=== PATIENT | male | born 1945 | race Caucasian/White ===

== ENCOUNTER 2017-02-20 08:15 | Inpatient (IN) | payer OTHER ==
[~2017-02-20] VITALS: Ht 177.8 cm; Wt 74.9 kg
[2017-02-20] MEDS ORDERED: HYDROmorphone 1 MG/ML, 1ML ONE (08:44)
[2017-02-20] MEDS ORDERED: ASPIRIN 325 MG TABLET ONE (08:44)
[2017-02-20] MEDS ORDERED: SODIUM CHLORIDE 0.9% 1,000ML IVBOLUS ONE ×2 (09:00→13:00)
[2017-02-20] MEDS ORDERED: ONDANSETRON 2MG/ML, 2ML IVPush ONE (09:00)
[2017-02-20] MEDS ORDERED: SODIUM CHLORIDE FLUSH 10ML SYR IVF ONE (09:00)
[2017-02-20] MEDS ORDERED: ASPIRIN 81 MG TABLET CHEW PO ONE (09:00)
[2017-02-20] MEDS: HYDROmorphone 1 MG/ML, 1ML IVPush PRN ×3 (09:04→15:14)
[2017-02-20 09:24] LABS: WHITE BLOOD COUNT 20.9 x10^3/uL (3.4-10)
[2017-02-20 09:36] LABS: BLOOD UREA NITROGEN 31 mg/dL (7-18)
[2017-02-20 09:44] LABS: IS PT STATUS REG ER OR PRE ER? YES
[2017-02-20] MEDS ORDERED: DILTIAZEM 5 MG/ML, 5ML ONE ×2 (09:50→11:36)
[2017-02-20] MEDS ORDERED: MORPHINE SULFATE 4 MG/ML, 1ML ONE (10:03)
[2017-02-20] MEDS ORDERED: ONDANSETRON 2MG/ML, 2ML ONE (10:03)
[2017-02-20] MEDS ORDERED: ROFL500T INH (10:10)
[2017-02-20] MEDS ORDERED: ATEN50TA41 PO (10:10)
[2017-02-20] MEDS ORDERED: CEFTRIAXONE PMX 1GM/50ML 50 ML ONE (10:22)
[2017-02-20] MEDS ORDERED: HEPARIN 5,000 UNITS/ML, 1ML ONE (10:28)
[2017-02-20] MEDS ORDERED: HEPARIN 25,000 UNITS/500ML PMX 500 ML ONE (10:28)
[2017-02-20] MEDS ORDERED: CEFTRIAXONE PMX 1GM/50ML 50 ML IVPB ONE (10:30)
[2017-02-20] MEDS ORDERED: AZITHROMYCIN 500 MG in SODIUM CHLORIDE 0.9% 250 ML IVPB ONE (10:30)
[2017-02-20] MEDS: HEPARIN 25,000 UNITS/500ML PMX 500 ML IV PRN ×2 (10:45→15:11)
[2017-02-20 10:57] LABS: DIFF TOTAL CELLS COUNTED 100 CELL DIFF
[2017-02-20] MEDS ORDERED: HEPARIN 5,000 UNITS/ML, 1ML IV PRN (11:00)
[2017-02-20] MEDS ORDERED: HEPARIN 5,000 UNITS/ML, 1ML IV ONE (11:00)
[2017-02-20 11:02] LABS: VERIFY COUNTS? YES
[2017-02-20] MEDS ORDERED: SUCCINYLCHOLINE 20 MG/ML, 10ML IVPush ONE (11:30)
[2017-02-20] MEDS ORDERED: ETOMIDATE 20 MG/10 ML IVPush ONE (11:30)
[2017-02-20] MEDS ORDERED: ALBUTEROL SULFATE 2.5 MG/3 ML NPPB ONE (11:35)
[2017-02-20] MEDS ORDERED: ALBUTEROL SULFATE 2.5 MG/3 ML ONE (11:38)
[2017-02-20] MEDS ORDERED: ALBUTEROL/IPRATROPIUM 2.5MG/0.5MG, 3 ML ONE (11:38)
[2017-02-20 11:45] LABS: ABG COLLECTION SITE LEFT RADIAL; COLLATERAL CIRCULATION TESTING NORMAL
[2017-02-20] MEDS ORDERED: ALBUTEROL/IPRATROPIUM 2.5MG/0.5MG, 3 ML NEB ONE (12:00)
[2017-02-20] MEDS: SODIUM CHLORIDE 0.9% 1,000 ML IV SCH (12:57)
[2017-02-20] MEDS ORDERED: POLYETHYLENE GLYCOL 17 GM PACKET PO PRN (13:00)
[2017-02-20] MEDS: CEFTRIAXONE PMX 2GM/50ML 50 ML IV SCH (13:00)
[2017-02-20] MEDS: AZITHROMYCIN 500 MG in SODIUM CHLORIDE 0.9% 250 ML IV SCH (13:00)
[2017-02-20] MEDS ORDERED: TEMAZEPAM 15 MG CAPSULE PO PRN (13:00)
[2017-02-20] MEDS ORDERED: GUAIFENESIN/DM 200-20MG, 10ML UDC PO PRN (13:00)
[2017-02-20] MEDS ORDERED: ACETAMINOPHEN 325 MG TABLET PO PRN (13:00)
[2017-02-20] MEDS ORDERED: ENOXAPARIN 40 MG/0.4 ML SQ SCH (13:00)
[2017-02-20] MEDS: OXYcodone IR 5MG TABLET PO PRN ×2 (14:59→19:52)
[2017-02-20] MEDS: methylPREDNISolone SOD SUCC 125 MG/2 ML IVPush SCH ×2 (15:17→19:52)
[2017-02-20] MEDS: DILTIAZEM 125 MG in SODIUM CHLORIDE 0.9% 100 ML IV SCH (15:18)
[2017-02-20] MEDS ORDERED: OMNIPAQUE 350 MG/ML, 100ML BOTTLE ONE (17:24)
[2017-02-20] MEDS: ALBUTEROL/IPRATROPIUM 2.5MG/0.5MG, 3 ML NPPB SCH ×2 (18:30→22:05)
[2017-02-21] MEDS: methylPREDNISolone SOD SUCC 125 MG/2 ML IVPush SCH ×4 (01:26→20:46)
[2017-02-21] MEDS: ENOXAPARIN 80 MG/0.8 ML SQ SCH ×2 (01:27→14:18)
[2017-02-21] MEDS: SODIUM CHLORIDE 0.9% 1,000 ML IV SCH ×3 (01:28→18:02)
[2017-02-21] MEDS: OXYcodone IR 5MG TABLET PO PRN ×3 (01:29→14:12)
[2017-02-21] MEDS: ALBUTEROL/IPRATROPIUM 2.5MG/0.5MG, 3 ML NPPB SCH ×6 (01:53→21:27)
[2017-02-21] MEDS: DILTIAZEM 125 MG in SODIUM CHLORIDE 0.9% 100 ML IV SCH ×2 (02:14→15:06)
[2017-02-21] MEDS ORDERED: OMEPRAZOLE 20 MG CAPSULE.DR PO PRN (02:30)
[2017-02-21] MEDS: ONDANSETRON 2MG/ML, 2ML IVPush PRN ×2 (03:17→14:06)
[2017-02-21 03:49] LABS: BLOOD UREA NITROGEN 34 mg/dL (7-18)
[2017-02-21 03:52] LABS: ASPARTATE AMINO TRANSFERASE 10 U/L (15-37)
[2017-02-21] MEDS ORDERED: MORPHINE SULFATE 4 MG/ML, 1ML IVPush ONE (04:00)
[2017-02-21 04:22] LABS: DIFF TOTAL CELLS COUNTED 100 CELL DIFF; HEMATOCRIT 48.3 % (39.2-51.8); HEMOGLOBIN 15.9 g/dL (13.7-18.0); WHITE BLOOD COUNT 13.1 x10^3/uL (3.4-10)
[2017-02-21 04:25] LABS: VERIFY COUNTS? YES
[2017-02-21 04:39] LABS: ABG COLLECTION SITE RIGHT RADIAL; COLLATERAL CIRCULATION TESTING NORMAL
[2017-02-21] MEDS ORDERED: POTASSIUM CHLORIDE 20 MEQ TAB.ER.PRT PO ONE (07:00)
[2017-02-21] MEDS ORDERED: SENNA/DOCUSATE TABLET PO SCH (09:00)
[2017-02-21] MEDS: ALUMINUM/MAG/SIMETHICONE 30 ML UDC PO PRN ×2 (09:21→12:38)
[2017-02-21] MEDS: AZITHROMYCIN 500 MG in SODIUM CHLORIDE 0.9% 250 ML IV SCH (12:45)
[2017-02-21] MEDS: CEFTRIAXONE PMX 2GM/50ML 50 ML IV SCH (12:45)
[2017-02-21] MEDS: FENTANYL PF 100 MCG/2ML IVPush PRN ×3 (15:02→21:20)
[2017-02-21] MEDS ORDERED: PANTOPRAZOLE 80 MG in SODIUM CHLORIDE 0.9% 50 ML IV ONE (17:30)
[2017-02-21] MEDS: PANTOPRAZOLE 80 MG in SODIUM CHLORIDE 0.9% 100 ML IV SCH (18:01)
[2017-02-21] MEDS ORDERED: ACETAMINOPHEN 325 MG TABLET PO PRN (20:00)
[2017-02-22] MEDS: ENOXAPARIN 80 MG/0.8 ML SQ SCH ×2 (00:03→13:22)
[2017-02-22] MEDS: OXYcodone IR 5MG TABLET PO PRN ×2 (00:04→07:50)
[2017-02-22] MEDS: ALBUTEROL/IPRATROPIUM 2.5MG/0.5MG, 3 ML NPPB SCH ×6 (01:59→23:00)
[2017-02-22] MEDS: methylPREDNISolone SOD SUCC 125 MG/2 ML IVPush SCH ×4 (02:15→20:39)
[2017-02-22] MEDS: PANTOPRAZOLE 80 MG in SODIUM CHLORIDE 0.9% 100 ML IV SCH ×2 (02:47→13:22)
[2017-02-22 03:35] LABS: HEMATOCRIT 41.2 % (39.2-51.8); HEMOGLOBIN 13.5 g/dL (13.7-18.0); WHITE BLOOD COUNT 8.9 x10^3/uL (3.4-10)
[2017-02-22 03:38] LABS: BLOOD UREA NITROGEN 41 mg/dL (7-18)
[2017-02-22 04:23] LABS: DIFF TOTAL CELLS COUNTED 100 CELL DIFF
[2017-02-22 04:25] LABS: VERIFY COUNTS? YES
[2017-02-22 05:31] LABS: ABG COLLECTION SITE RIGHT RADIAL; COLLATERAL CIRCULATION TESTING NORMAL
[2017-02-22 05:50] LABS: FIO2 55 %
[2017-02-22] MEDS: SODIUM CHLORIDE 0.9% 1,000 ML IV SCH ×2 (06:08→17:47)
[2017-02-22] MEDS: DILTIAZEM 125 MG in SODIUM CHLORIDE 0.9% 100 ML IV SCH (06:47)
[2017-02-22] MEDS: SENNA/DOCUSATE TABLET PO SCH (07:50)
[2017-02-22] MEDS ORDERED: OMEPRAZOLE 20 MG CAPSULE.DR PO SCH (09:00)
[2017-02-22] MEDS: FENTANYL PF 100 MCG/2ML IVPush PRN ×5 (09:59→23:26)
[2017-02-22 10:38] VITALS: BP 118/61
[2017-02-22] MEDS: AZITHROMYCIN 500 MG in SODIUM CHLORIDE 0.9% 250 ML IV SCH (12:54)
[2017-02-22 13:27] VITALS: BP 145/71
[2017-02-22] MEDS: CEFTRIAXONE PMX 2GM/50ML 50 ML IV SCH (14:43)
[2017-02-22 19:10] VITALS: BP 144/66
[2017-02-23] MEDS: OXYcodone IR 5MG TABLET PO PRN ×5 (00:24→20:14)
[2017-02-23] MEDS: PANTOPRAZOLE 80 MG in SODIUM CHLORIDE 0.9% 100 ML IV SCH ×3 (01:08→20:14)
[2017-02-23] MEDS: ENOXAPARIN 80 MG/0.8 ML SQ SCH ×3 (01:08→23:22)
[2017-02-23] MEDS: methylPREDNISolone SOD SUCC 125 MG/2 ML IVPush SCH ×2 (02:19→09:29)
[2017-02-23] MEDS: SODIUM CHLORIDE 0.9% 1,000 ML IV SCH ×3 (02:19→23:22)
[2017-02-23 03:00] VITALS: BP 145/69
[2017-02-23] MEDS: ALBUTEROL/IPRATROPIUM 2.5MG/0.5MG, 3 ML NPPB SCH ×5 (03:00→23:00)
[2017-02-23] MEDS: FENTANYL PF 100 MCG/2ML IVPush PRN ×3 (04:57→20:14)
[2017-02-23 08:48] VITALS: BP_SYST 159; BP_SYST 167; BP_DIAS 73; BP_DIAS 75
[2017-02-23] MEDS: SENNA/DOCUSATE TABLET PO SCH (09:29)
[2017-02-23] MEDS: CEFTRIAXONE PMX 2GM/50ML 50 ML IV SCH (12:59)
[2017-02-23] MEDS: AZITHROMYCIN 500 MG in SODIUM CHLORIDE 0.9% 250 ML IV SCH (13:36)
[2017-02-23 15:25] VITALS: BP 155/79
[2017-02-23 18:50] VITALS: BP 188/93
[2017-02-23] MEDS: TEMAZEPAM 15 MG CAPSULE PO PRN (23:23)
[2017-02-24] VITALS (9 sets, daily range): BP systolic 143–183; BP diastolic 75–92
[2017-02-24] MEDS: ALBUTEROL/IPRATROPIUM 2.5MG/0.5MG, 3 ML NPPB SCH ×6 (03:10→23:00)
[2017-02-24] MEDS: PANTOPRAZOLE 80 MG in SODIUM CHLORIDE 0.9% 100 ML IV SCH (04:15)
[2017-02-24] MEDS: OXYcodone IR 5MG TABLET PO PRN ×3 (04:30→16:12)
[2017-02-24] MEDS: SENNA/DOCUSATE TABLET PO SCH (08:06)
[2017-02-24] MEDS: SODIUM CHLORIDE 0.9% 1,000 ML IV SCH (10:38)
[2017-02-24] MEDS: ATENOLOL 50 MG TABLET PO SCH (12:25)
[2017-02-24] MEDS: CEFTRIAXONE PMX 2GM/50ML 50 ML IV SCH (12:25)
[2017-02-24] MEDS: ENOXAPARIN 80 MG/0.8 ML SQ SCH (13:27)
[2017-02-24] MEDS: AZITHROMYCIN 500 MG in SODIUM CHLORIDE 0.9% 250 ML IV SCH (13:27)
[2017-02-24] MEDS: NYSTATIN 500,000 UNITS/5 ML UDC PO SCH ×3 (13:27→21:06)
[2017-02-24] MEDS: ENALAPRILAT 1.25 MG/ML, 2ML IV PRN (17:27)
[2017-02-24] MEDS: PANTOPRAZOLE 40 MG IV IVPush SCH (21:05)
[2017-02-24] MEDS: FENTANYL PF 100 MCG/2ML IVPush PRN (21:06)
[2017-02-24] MEDS: TEMAZEPAM 15 MG CAPSULE PO PRN (22:53)
[2017-02-25] MEDS: OXYcodone IR 5MG TABLET PO PRN ×6 (00:52→21:30)
[2017-02-25] MEDS: FENTANYL PF 100 MCG/2ML IVPush PRN ×3 (01:05→21:30)
[2017-02-25 01:19] VITALS: BP 189/96
[2017-02-25] MEDS: ENALAPRILAT 1.25 MG/ML, 2ML IV PRN (01:43)
[2017-02-25] MEDS: ALBUTEROL/IPRATROPIUM 2.5MG/0.5MG, 3 ML NPPB SCH ×5 (03:00→19:27)
[2017-02-25] MEDS: ATENOLOL 50 MG TABLET PO SCH (04:49)
[2017-02-25] MEDS: NYSTATIN 500,000 UNITS/5 ML UDC PO SCH ×4 (04:50→21:29)
[2017-02-25 05:04] LABS: ASPARTATE AMINO TRANSFERASE 22 U/L (15-37); BLOOD UREA NITROGEN 30 mg/dL (7-18)
[2017-02-25 05:19] LABS: HEMATOCRIT 44.4 % (39.2-51.8); HEMOGLOBIN 14.7 g/dL (13.7-18.0); WHITE BLOOD COUNT 9.7 x10^3/uL (3.4-10)
[2017-02-25 05:58] LABS: DIFF TOTAL CELLS COUNTED 100 CELL DIFF
[2017-02-25 06:00] LABS: VERIFY COUNTS? YES
[2017-02-25] MEDS: SENNA/DOCUSATE TABLET PO SCH (08:52)
[2017-02-25] MEDS: PANTOPRAZOLE 40 MG IV IVPush SCH (08:53)
[2017-02-25] MEDS: ENOXAPARIN 40 MG/0.4 ML SQ SCH (08:53)
[2017-02-25 08:59] VITALS: BP_SYST 166; BP_SYST 180; BP_DIAS 84; BP_DIAS 87
[2017-02-25] MEDS ORDERED: ALBUTEROL/IPRATROPIUM 2.5MG/0.5MG, 3 ML NPPB PRN (11:00)
[2017-02-25] MEDS: CEFTRIAXONE PMX 2GM/50ML 50 ML IV SCH (13:39)
[2017-02-25] MEDS: AZITHROMYCIN 500 MG in SODIUM CHLORIDE 0.9% 250 ML IV SCH (14:27)
[2017-02-25 14:36] VITALS: BP 159/87
[2017-02-25 17:43] VITALS: BP_SYST 159; BP_SYST 167; BP_DIAS 72; BP_DIAS 85
[2017-02-25 20:00] VITALS: BP 154/77
[2017-02-25] MEDS: PANTOPROZOLE 40MG TABLET PO SCH (21:29)
[2017-02-26 01:16] VITALS: BP 155/79
[2017-02-26] MEDS: FENTANYL PF 100 MCG/2ML IVPush PRN ×2 (01:30→22:52)
[2017-02-26 04:50] LABS: HEMOGLOBIN 13.5 g/dL (13.7-18.0); WHITE BLOOD COUNT 8.8 x10^3/uL (3.4-10)
[2017-02-26 05:00] LABS: BLOOD UREA NITROGEN 19 mg/dL (7-18)
[2017-02-26 05:05] LABS: ASPARTATE AMINO TRANSFERASE 12 U/L (15-37)
[2017-02-26] MEDS: NYSTATIN 500,000 UNITS/5 ML UDC PO SCH ×4 (05:32→20:35)
[2017-02-26] MEDS: ASPIRIN 81 MG TABLET EC PO SCH (05:33)
[2017-02-26] MEDS: ATENOLOL 50 MG TABLET PO SCH (05:33)
[2017-02-26 05:52] LABS: DIFF TOTAL CELLS COUNTED 100 CELL DIFF
[2017-02-26 05:57] LABS: VERIFY COUNTS? YES
[2017-02-26 05:58] LABS: POLYCHROMASIA 1+
[2017-02-26] MEDS: ALBUTEROL/IPRATROPIUM 2.5MG/0.5MG, 3 ML NPPB SCH ×4 (07:05→19:36)
[2017-02-26 07:21] VITALS: BP 179/81
[2017-02-26] MEDS: PANTOPROZOLE 40MG TABLET PO SCH ×2 (09:16→20:35)
[2017-02-26] MEDS: SENNA/DOCUSATE TABLET PO SCH (09:16)
[2017-02-26] MEDS: OXYcodone IR 5MG TABLET PO PRN ×3 (09:16→20:35)
[2017-02-26] MEDS: ENOXAPARIN 40 MG/0.4 ML SQ SCH (09:16)
[2017-02-26 10:33] VITALS: BP 155/84
[2017-02-26] MEDS: POLYETHYLENE GLYCOL 17 GM PACKET PO PRN (12:00)
[2017-02-26] MEDS: CEFTRIAXONE PMX 2GM/50ML 50 ML IV SCH (13:36)
[2017-02-26] MEDS: AZITHROMYCIN 500 MG in SODIUM CHLORIDE 0.9% 250 ML IV SCH (14:28)
[2017-02-26 14:43] VITALS: BP 155/88
[2017-02-26 20:15] VITALS: BP 145/85
[2017-02-27] MEDS: TEMAZEPAM 15 MG CAPSULE PO PRN (00:28)
[2017-02-27 01:56] VITALS: BP 127/83
[2017-02-27] MEDS: NYSTATIN 500,000 UNITS/5 ML UDC PO SCH ×4 (05:52→20:31)
[2017-02-27] MEDS: OXYcodone IR 5MG TABLET PO PRN ×4 (05:52→18:59)
[2017-02-27] MEDS: ASPIRIN 81 MG TABLET EC PO SCH (05:52)
[2017-02-27] MEDS: ATENOLOL 50 MG TABLET PO SCH (05:52)
[2017-02-27 05:58] VITALS: BP 137/64
[2017-02-27] MEDS: ALBUTEROL/IPRATROPIUM 2.5MG/0.5MG, 3 ML NPPB SCH ×4 (07:07→20:00)
[2017-02-27 07:51] VITALS: BP 165/83
[2017-02-27] MEDS: PANTOPROZOLE 40MG TABLET PO SCH ×2 (09:01→20:31)
[2017-02-27] MEDS: ENOXAPARIN 40 MG/0.4 ML SQ SCH (09:01)
[2017-02-27] MEDS: SENNA/DOCUSATE TABLET PO SCH (09:01)
[2017-02-27] MEDS: CEFTRIAXONE PMX 2GM/50ML 50 ML IV SCH (12:40)
[2017-02-27] MEDS: FENTANYL PF 100 MCG/2ML IVPush PRN ×2 (13:03→20:31)
[2017-02-27] MEDS: AZITHROMYCIN 500 MG in SODIUM CHLORIDE 0.9% 250 ML IV SCH (13:46)
[2017-02-27 14:08] VITALS: BP 149/70
[2017-02-27] MEDS ORDERED: SODIUM CHLORIDE NASAL SPRAY 45ML BOTTLE NAS PRN (17:30)
[2017-02-27 18:40] VITALS: BP 155/63
[2017-02-28] MEDS: OXYcodone IR 5MG TABLET PO PRN ×4 (00:22→20:01)
[2017-02-28] MEDS: TEMAZEPAM 15 MG CAPSULE PO PRN (00:28)
[2017-02-28 00:47] VITALS: BP 159/82
[2017-02-28] MEDS: FENTANYL PF 100 MCG/2ML IVPush PRN ×2 (01:50→11:42)
[2017-02-28 04:48] LABS: HEMATOCRIT 37.6 % (39.2-51.8); HEMOGLOBIN 12.5 g/dL (13.7-18.0); WHITE BLOOD COUNT 12.1 x10^3/uL (3.4-10)
[2017-02-28 04:58] LABS: BLOOD UREA NITROGEN 22 mg/dL (7-18)
[2017-02-28] MEDS: ASPIRIN 81 MG TABLET EC PO SCH (05:18)
[2017-02-28] MEDS: POLYETHYLENE GLYCOL 17 GM PACKET PO PRN (05:24)
[2017-02-28] MEDS: NYSTATIN 500,000 UNITS/5 ML UDC PO SCH ×4 (05:24→19:27)
[2017-02-28] MEDS: ATENOLOL 50 MG TABLET PO SCH (05:24)
[2017-02-28 06:30] VITALS: BP 154/85
[2017-02-28] MEDS: SENNA/DOCUSATE TABLET PO SCH (08:35)
[2017-02-28] MEDS: ENOXAPARIN 40 MG/0.4 ML SQ SCH (08:35)
[2017-02-28] MEDS: PANTOPROZOLE 40MG TABLET PO SCH ×2 (08:35→19:23)
[2017-02-28] MEDS: ALBUTEROL/IPRATROPIUM 2.5MG/0.5MG, 3 ML NPPB SCH ×4 (09:15→21:50)
[2017-02-28] MEDS: CEFTRIAXONE PMX 2GM/50ML 50 ML IV SCH (12:24)
[2017-02-28] MEDS: AZITHROMYCIN 500 MG in SODIUM CHLORIDE 0.9% 250 ML IV SCH (13:00)
[2017-02-28 13:36] VITALS: BP 146/89
[2017-02-28] MEDS ORDERED: ACETAMINOPHEN 325 MG TABLET PO PRN (15:00)
[2017-02-28 19:30] VITALS: BP 176/78
[2017-02-28] MEDS: ENALAPRILAT 1.25 MG/ML, 2ML IV PRN (19:39)
[2017-03-01 01:53] VITALS: BP 131/77
[2017-03-01] MEDS: OXYcodone IR 5MG TABLET PO PRN ×4 (01:58→20:36)
[2017-03-01] MEDS: ATENOLOL 50 MG TABLET PO SCH (05:56)
[2017-03-01] MEDS: ASPIRIN 81 MG TABLET EC PO SCH (05:56)
[2017-03-01 06:37] VITALS: BP 150/85
[2017-03-01] MEDS: ALBUTEROL/IPRATROPIUM 2.5MG/0.5MG, 3 ML NPPB SCH ×4 (07:20→18:50)
[2017-03-01] MEDS: PANTOPROZOLE 40MG TABLET PO SCH ×2 (08:10→20:36)
[2017-03-01] MEDS: ENOXAPARIN 40 MG/0.4 ML SQ SCH (08:10)
[2017-03-01] MEDS: NYSTATIN 500,000 UNITS/5 ML UDC PO SCH ×4 (08:10→20:36)
[2017-03-01] MEDS: SENNA/DOCUSATE TABLET PO SCH (08:17)
[2017-03-01 12:42] VITALS: BP 162/82
[2017-03-01] MEDS: CEFTRIAXONE PMX 2GM/50ML 50 ML IV SCH (14:08)
[2017-03-01] MEDS: FENTANYL PF 100 MCG/2ML IVPush PRN (16:15)
[2017-03-01 18:40] VITALS: BP 155/83
[2017-03-01] MEDS: TEMAZEPAM 15 MG CAPSULE PO PRN (23:28)
[2017-03-02 00:49] VITALS: BP 154/81
[2017-03-02] MEDS: OXYcodone IR 5MG TABLET PO PRN ×5 (01:13→22:45)
[2017-03-02] MEDS: ASPIRIN 81 MG TABLET EC PO SCH (05:42)
[2017-03-02] MEDS: ATENOLOL 50 MG TABLET PO SCH (05:43)
[2017-03-02] MEDS: NYSTATIN 500,000 UNITS/5 ML UDC PO SCH ×4 (06:00→21:27)
[2017-03-02 07:01] VITALS: BP 147/86
[2017-03-02] MEDS: ALBUTEROL/IPRATROPIUM 2.5MG/0.5MG, 3 ML NPPB SCH ×4 (07:45→20:35)
[2017-03-02] MEDS: ENOXAPARIN 40 MG/0.4 ML SQ SCH (08:16)
[2017-03-02] MEDS: SENNA/DOCUSATE TABLET PO SCH (08:17)
[2017-03-02] MEDS: PANTOPROZOLE 40MG TABLET PO SCH ×2 (08:17→21:27)
[2017-03-02 13:34] VITALS: BP 124/72
[2017-03-02] MEDS: CEFTRIAXONE PMX 2GM/50ML 50 ML IV SCH (13:40)
[2017-03-02 18:44] VITALS: BP 127/78
[2017-03-03 00:38] VITALS: BP 127/72
[2017-03-03] MEDS: OXYcodone IR 5MG TABLET PO PRN ×3 (02:52→14:12)
[2017-03-03] MEDS: ATENOLOL 50 MG TABLET PO SCH (05:41)
[2017-03-03] MEDS: ASPIRIN 81 MG TABLET EC PO SCH (05:41)
[2017-03-03] MEDS: NYSTATIN 500,000 UNITS/5 ML UDC PO SCH ×2 (05:41→11:09)
[2017-03-03] MEDS: ALBUTEROL/IPRATROPIUM 2.5MG/0.5MG, 3 ML NPPB SCH ×3 (07:20→14:30)
[2017-03-03 08:00] VITALS: BP 125/75
[2017-03-03] MEDS: PANTOPROZOLE 40MG TABLET PO SCH (08:01)
[2017-03-03] MEDS: ENOXAPARIN 40 MG/0.4 ML SQ SCH (08:01)
[2017-03-03] MEDS: SENNA/DOCUSATE TABLET PO SCH (08:02)
[2017-03-03] MEDS ORDERED: OMEP-110 PO (08:10)
[2017-03-03] MEDS ORDERED: PRED10TA PO (08:10)
[2017-03-03] MEDS ORDERED: ALPR0.254 PO (08:10)
[2017-03-03] MEDS ORDERED: NYST1000 PO (08:10)
[2017-03-03] MEDS ORDERED: DOXY100C15 PO (08:10)
[2017-03-03] MEDS ORDERED: ASPI-621 PO (08:10)
[2017-03-03] MEDS ORDERED: IPRA3AMP NPPB (08:10)
[2017-03-03] MEDS ORDERED: FLUT1AER INH (08:10)
[2017-03-03] MEDS ORDERED: CEFD300C37 PO (08:10)
[2017-03-03 09:55] LABS: HEMATOCRIT 49.1 % (39.2-51.8); HEMOGLOBIN 16.3 g/dL (13.7-18.0)
[2017-03-03] MEDS: CEFTRIAXONE PMX 2GM/50ML 50 ML IV SCH (13:55)
[2017-03-03 14:00] VITALS: BP 108/69
== END 2017-03-03 15:29 | disposition home or self-care (01) | DRG 871 ==
LOC: ED 08:51 → EDSEX 08:51 → EDIP 11:45 → CCU 13:32 → 5SO 02-22 10:22 → 3NE 02-28 18:40
PROVIDERS: ADMIT Internal Medicine; ATTEND Internal Medicine
DX: A41.9 Sepsis, unspecified organism (principal); J15.9 Unspecified bacterial pneumonia; J96.01 Acute respiratory failure with hypoxia; E43 Unspecified severe protein-calorie malnutrition; J13 Pneumonia due to Streptococcus pneumoniae; K92.0 Hematemesis; K55.1 Chronic vascular disorders of intestine; J96.20 Acute and chronic respiratory failure, unspecified whether with hypoxia or hypercapnia; B37.0 Candidal stomatitis; J44.0 Chronic obstructive pulmonary disease with (acute) lower respiratory infection; J44.1 Chronic obstructive pulmonary disease with (acute) exacerbation; I48.91 Unspecified atrial fibrillation; K80.20 Calculus of gallbladder without cholecystitis without obstruction; F32.9 Major depressive disorder, single episode, unspecified; F17.200 Nicotine dependence, unspecified, uncomplicated; F41.9 Anxiety disorder, unspecified; I11.9 Hypertensive heart disease without heart failure; M54.9 Dorsalgia, unspecified; G89.29 Other chronic pain; R65.20 Severe sepsis without septic shock; Z79.891 Long term (current) use of opiate analgesic; Z83.3 Family history of diabetes mellitus; Z99.81 Dependence on supplemental oxygen; Z68.23 Body mass index [BMI] 23.0-23.9, adult; Z90.49 Acquired absence of other specified parts of digestive tract
CPT/HCPCS: 36415; 36600; 71010; 71275; 74230; 80048; 80053; 82040; 82378; 82803; 83605; 83735; 83880; 84145; 84484; 85025; 85520; 86301; 87040; 87070; 87081; 87181; 87184; 87205; 93005; 93306; 94640; 96365; 96375; 99292; J0456; J0696; J1170; J1644; J1650; J2405; J3010; J7613; J7620; Q9967; C9113; J2930; J7030; J7050; J7512